=== PATIENT | female | born 1960 | race Caucasian/White ===

== ENCOUNTER → 2022-01-27 10:57 | Outpatient (BNVA) | payer MEDICARE, BC, SELFPAY | PROVIDERS: PCP Registered Nurse; Referring Provider Registered Nurse; Visit Provider Psychiatry & Neurology Neurology | DX: G35 Multiple sclerosis (principal); N31.9 Neuromuscular dysfunction of bladder, unspecified; G89.29 Other chronic pain; R25.2 Cramp and spasm; K59.00 Constipation, unspecified; R41.3 Other amnesia | CPT/HCPCS: 99215 ==

== ENCOUNTER 2022-02-17 02:59 | Outpatient (RCR) | payer MEDICARE, BC, SELFPAY ==
[2022-02-17] MEDS: methylPREDNISolone SUCC 125 MG VIAL 100 MG IVP (09:05)
[2022-02-17] MEDS: Acetaminophen 325 MG TAB 650 MG PO (09:05)
[2022-02-17] MEDS: diphenhydrAMINE 50 MG/ML VIAL IVP (09:06)
[2022-02-17 09:35] VITALS: BP 165/86; PULSE 83; RESP 16; TEMP 36.9; O2SAT 98
[2022-02-17 10:05] VITALS: BP 142/80; PULSE 77; RESP 16; TEMP 37.1; O2SAT 96
[2022-02-17 10:35] VITALS: BP 146/90; PULSE 73; RESP 16; TEMP 37.1; O2SAT 97
[2022-02-17 11:05] VITALS: BP 128/90; PULSE 76; RESP 16; TEMP 36; O2SAT 96
[2022-02-17 11:35] VITALS: BP 138/90; PULSE 75; RESP 16; TEMP 36.4; O2SAT 93
[2022-02-17 12:05] VITALS: BP 150/90; PULSE 74; RESP 16; TEMP 36.9; O2SAT 93
[2022-02-17] MEDS: Normal Saline Flush 10 ML SYR IVP (12:15)
== END 2022-03-04 23:59 | disposition home or self-care (01) ==
LOC: INF 02:59
PROVIDERS: PCP Registered Nurse; Visit Provider Psychiatry & Neurology Neurology
DX: G35 Multiple sclerosis (principal); E55.9 Vitamin D deficiency, unspecified
CPT/HCPCS: 96365; 96366; 96374; J1200; J2350; J2930

== ENCOUNTER 2022-03-06 01:59 | Outpatient (RCR) | payer MEDICARE, BC, SELFPAY ==
[2022-03-05 00:09] VITALS: BP 150/90; PULSE 74; RESP 16; TEMP 36.9
[2022-03-06] VITALS (7 sets, daily range): BP systolic 124–136; BP diastolic 68–86; PULSE 73–91; RESP 18; TEMP 34.9–36; O2SAT 96–99
[2022-03-06] MEDS: Dexamethasone 10 MG/ML VIAL IVP (09:02)
[2022-03-06] MEDS: Acetaminophen 325 MG TAB 650 MG PO (09:02)
[2022-03-06] MEDS: diphenhydrAMINE 50 MG/ML VIAL IVP (09:02)
[2022-03-06] MEDS: Normal Saline Flush 10 ML SYR IVP (09:17)
== END 2022-04-03 23:59 | disposition home or self-care (01) ==
LOC: INF 01:59
PROVIDERS: PCP Registered Nurse; Visit Provider Psychiatry & Neurology Neurology
DX: G35 Multiple sclerosis (principal)
CPT/HCPCS: 96375; 96365; 96366; 96374; J1100; J1200; J2350

== ENCOUNTER → 2022-03-20 12:42 | Outpatient (BNVA) | payer MEDICARE, BC, SELFPAY | PROVIDERS: PCP Registered Nurse; Referring Provider Registered Nurse; Visit Provider Nurse Practitioner Gerontology | DX: R33.8 Other retention of urine (principal); N31.9 Neuromuscular dysfunction of bladder, unspecified; G35 Multiple sclerosis; K59.00 Constipation, unspecified | CPT/HCPCS: 99215 ==

== ENCOUNTER → 2022-04-29 11:10 | Outpatient (BNVA) | payer MEDICARE, BC, SELFPAY | PROVIDERS: PCP Registered Nurse; Referring Provider Registered Nurse; Visit Provider Psychiatry & Neurology Neurology | DX: G35 Multiple sclerosis (principal); N31.9 Neuromuscular dysfunction of bladder, unspecified; K59.00 Constipation, unspecified; G89.29 Other chronic pain; R41.3 Other amnesia; R25.2 Cramp and spasm; F32.9 Major depressive disorder, single episode, unspecified | CPT/HCPCS: 99215 ==

== ENCOUNTER → 2022-07-29 11:07 | Outpatient (BNVA) | payer MEDICARE, BC, SELFPAY | PROVIDERS: PCP Registered Nurse; Referring Provider Registered Nurse; Visit Provider Psychiatry & Neurology Neurology | DX: G35 Multiple sclerosis (principal); N31.9 Neuromuscular dysfunction of bladder, unspecified; K59.00 Constipation, unspecified; G89.29 Other chronic pain; E55.9 Vitamin D deficiency, unspecified; R25.2 Cramp and spasm; R41.3 Other amnesia; F32.9 Major depressive disorder, single episode, unspecified; I10 Essential (primary) hypertension | CPT/HCPCS: 99215 ==

== ENCOUNTER 2022-08-25 02:27 | Outpatient (RCR) | payer MEDICARE, BC, SELFPAY ==
[2022-08-25] VITALS (8 sets, daily range): BP systolic 122–170; BP diastolic 67–87; PULSE 78–86; RESP 16–17; TEMP 35.8–37; O2SAT 94–98
[2022-08-25] MEDS: methylPREDNISolone SUCC 125 MG VIAL 100 MG IV (08:54)
[2022-08-25] MEDS: Acetaminophen 325 MG TAB 650 MG PO (08:55)
[2022-08-25] MEDS: diphenhydrAMINE 50 MG/ML VIAL IV (08:56)
[2022-08-25] MEDS: Normal Saline Flush 10 ML SYR IVP (09:11)
[2022-08-25] MEDS: OCRELIZUMAB 600 MG in Normal Saline 500 ML 40 MG IVPB (09:26)
== END 2022-09-03 23:59 | disposition home or self-care (01) ==
LOC: INF 02:27
PROVIDERS: PCP Registered Nurse; Visit Provider Psychiatry & Neurology Neurology
DX: G35 Multiple sclerosis (principal)
CPT/HCPCS: 96365; 96366; 96374; 96375; J1200; J2350; J2930

== ENCOUNTER → 2023-01-13 09:35 | Outpatient (BNVA) | payer MEDICARE, BC, SELFPAY | PROVIDERS: PCP Registered Nurse; Referring Provider Registered Nurse; Visit Provider Psychiatry & Neurology Neurology | DX: G35 Multiple sclerosis (principal); N31.9 Neuromuscular dysfunction of bladder, unspecified; R25.2 Cramp and spasm; K59.09 Other constipation; G89.29 Other chronic pain; R41.3 Other amnesia; F32.9 Major depressive disorder, single episode, unspecified | CPT/HCPCS: 99214 ==

== ENCOUNTER 2023-02-25 04:15 | Outpatient (RCR) | payer MEDICARE, BC, SELFPAY ==
[2023-02-25] MEDS: Acetaminophen 325 MG TAB 650 MG PO (10:18)
[2023-02-25] MEDS: diphenhydrAMINE 50 MG/ML VIAL 25 MG IVP (10:19)
[2023-02-25] MEDS: methylPREDNISolone SUCC 125 MG VIAL 100 MG IV (10:19)
[2023-02-25] MEDS: Normal Saline Flush 10 ML SYR IVP (10:20)
[2023-02-25] MEDS: OCRELIZUMAB 600 MG in Normal Saline 500 ML 260 MG IVPB (10:29)
[2023-02-25 10:35] VITALS: BP 153/97; PULSE 90; RESP 18; TEMP 35.5; O2SAT 98
[2023-02-25 10:45] LABS: Abs Immature Grans 0.01 10^3/uL (0.0-0.06); Absolute Basophil Count 0.04 10^3/uL (0.0-0.2); Absolute Eosinophil Count 0.12 10^3/uL (0.0-0.7); Absolute Lymphocyte Count 1.65 10^3/uL (1.2-3.4); Absolute Monocyte Count 0.49 10^3/uL (0.1-0.8); Absolute Neutrophil Count 3.51 10^3/uL (1.2-6.7); Basophils % 0.7; Eosinophils % 2.1; HCT 44.1 % (36.0-46.0); HGB 14.8 g/dL (11.2-15.7); Immature Grans % 0.2; Lymphocytes % 28.4; MCH 28.5 pg (27.0-33.0); MCHC 33.6 % (32.0-36.0); MCV 85 fL (80-95); MPV 11.7 fL (8.0-11.0); Monocytes % 8.4; Neutrophils % 60.2; Platelet Count 291 10^3/uL (130-400); RBC 5.19 10^6/uL (3.93-5.22); RDW 12.8 % (11.7-14.6); WBC 5.82 10^3/uL (4.4-10.8)
[2023-02-25 10:50] VITALS: BP 153/96; PULSE 73; RESP 18; TEMP 35.1; O2SAT 99
[2023-02-25 11:05] VITALS: BP 153/98; PULSE 78; RESP 18; TEMP 35.8; O2SAT 96
[2023-02-25 11:18] LABS: ALT 22 U/L (14-59); AST 19 U/L (15-37); Albumin 3.8 g/dL (3.4-5.0); Alkaline Phosphatase 91 U/L (46-116); Anion Gap 8.6 mmol/L (3-11); BUN 11 mg/dL (7-18); Bilirubin, Total 0.5 mg/dL (0.2-1.0); CO2 28.4 mmol/L (21.0-32.0); CREATININE 0.8 mg/dL (0.55-1.02); Calcium 9.3 mg/dL (8.5-10.1); Chloride 104 mmol/L (98-107); Estimated GFR 83.26 (mL/min/1.73m2); Glucose 95 mg/dL (74-106); Potassium 3.9 mmol/L (3.5-5.1); Sodium 141 mmol/L (136-145); Total Protein 7.6 g/dL (6.4-8.2)
[2023-02-25 11:35] VITALS: BP 146/87; PULSE 81; RESP 18; TEMP 36.1; O2SAT 97
[2023-02-25 12:05] VITALS: BP 143/78; PULSE 82; RESP 18; TEMP 35.8; O2SAT 96
[2023-02-25 12:35] VITALS: BP 137/87; PULSE 78; RESP 18; TEMP 35.8; O2SAT 95
[2023-02-26 10:12] LABS: HBs Antibody, Qual Negative (See Note); HBs Antibody, Quant 3.9 mIU/mL (See Note); Hepatitis B Core Antibody Negative (Negative); Hepatitis B surface Ag Negative (Negative); Hepatitis C Ab w Rflx HCV PCR Negative (Negative)
[2023-02-26 11:16] LABS: IgA 209 mg/dL (85-499); IgG 817 mg/dL (610-1616); IgM 109 mg/dL (35-242)
[2023-02-27 14:26] LABS: CD19 <1 % (6-24); CD20 <1 % (6-24)
[2023-02-28 11:19] LABS: TB Interpretation Positive (Negative); TB2 Ag minus Nil 9.86 IU/mL
== END 2023-03-04 23:59 | disposition home or self-care (01) ==
LOC: INF 04:15
PROVIDERS: PCP Registered Nurse; Visit Provider Psychiatry & Neurology Neurology
DX: G35 Multiple sclerosis (principal); E55.9 Vitamin D deficiency, unspecified
CPT/HCPCS: 80053; 82306; 82784; 86704; 86706; 86803; 87340; 88184; 88185; 96365; 96366; 85025; 86480; J1200; J2350; J2930

== ENCOUNTER → 2023-03-19 10:08 | Outpatient (BNVA) | payer MEDICARE, BC, SELFPAY | PROVIDERS: PCP Registered Nurse; Visit Provider Nurse Practitioner Gerontology | DX: N31.9 Neuromuscular dysfunction of bladder, unspecified (principal); G35 Multiple sclerosis; R33.9 Retention of urine, unspecified; Z87.440 Personal history of urinary (tract) infections; K59.00 Constipation, unspecified | CPT/HCPCS: 99214 ==

== ENCOUNTER → 2023-07-14 10:14 | Outpatient (BNVA) | payer MEDICARE, BC, SELFPAY | PROVIDERS: PCP Registered Nurse; Referring Provider Registered Nurse; Visit Provider Psychiatry & Neurology Neurology | DX: G35 Multiple sclerosis (principal); N31.9 Neuromuscular dysfunction of bladder, unspecified; G89.29 Other chronic pain; R25.2 Cramp and spasm; K59.00 Constipation, unspecified; R41.3 Other amnesia; F32.9 Major depressive disorder, single episode, unspecified; I10 Essential (primary) hypertension | CPT/HCPCS: 99214 ==

== ENCOUNTER 2023-08-31 02:30 | Outpatient (RCR) | payer MEDICARE, BC, SELFPAY ==
[2023-08-31] MEDS: methylPREDNISolone SUCC 125 MG VIAL IV (09:57)
[2023-08-31] MEDS: Acetaminophen 325 MG TAB 650 MG PO (09:57)
[2023-08-31] MEDS: diphenhydrAMINE 50 MG/ML VIAL IV (09:57)
[2023-08-31] MEDS: Normal Saline Flush 10 ML SYR IVP (09:57)
[2023-08-31] MEDS: OCRELIZUMAB 600 MG in Normal Saline 500 ML 100 MG IVPB (10:07)
[2023-08-31 10:15] VITALS: BP 140/82; PULSE 76; RESP 17; TEMP 35.8; O2SAT 100
[2023-08-31 10:16] LABS: Abs Immature Grans 0.01 10^3/uL (0.0-0.06); Absolute Basophil Count 0.04 10^3/uL (0.0-0.2); Absolute Eosinophil Count 0.08 10^3/uL (0.0-0.7); Absolute Lymphocyte Count 1.56 10^3/uL (1.2-3.4); Absolute Monocyte Count 0.44 10^3/uL (0.1-0.8); Absolute Neutrophil Count 2.96 10^3/uL (1.2-6.7); Basophils % 0.8; Eosinophils % 1.6; HCT 44.8 % (36.0-46.0); HGB 14.9 g/dL (11.2-15.7); Immature Grans % 0.2; Lymphocytes % 30.6; MCH 28.4 pg (27.0-33.0); MCHC 33.3 % (32.0-36.0); MCV 86 fL (80-95); MPV 11.6 fL (8.0-11.0); Monocytes % 8.6; Neutrophils % 58.2; Platelet Count 264 10^3/uL (130-400); RBC 5.24 10^6/uL (3.93-5.22); RDW 12.9 % (11.7-14.6); RDW-SD 39.9 fL; WBC 5.09 10^3/uL (4.4-10.8)
[2023-08-31 10:29] LABS: ALT 26 U/L (14-59); AST 17 U/L (15-37); Albumin 3.8 g/dL (3.4-5.0); Alkaline Phosphatase 92 U/L (46-116); Anion Gap 10.2 mmol/L (3-11); BUN 10 mg/dL (7-18); Bilirubin, Total 0.4 mg/dL (0.2-1.0); CO2 29.8 mmol/L (21.0-32.0); CREATININE 0.9 mg/dL (0.55-1.02); Calcium 9.3 mg/dL (8.5-10.1); Chloride 104 mmol/L (98-107); Estimated GFR 71.83 (mL/min/1.73m2); Glucose 81 mg/dL (74-106); Potassium 3.7 mmol/L (3.5-5.1); Sodium 144 mmol/L (136-145); Total Protein 7.6 g/dL (6.4-8.2)
[2023-08-31 10:30] VITALS: BP 143/87; PULSE 77; RESP 17; TEMP 35.7; O2SAT 98
[2023-08-31 10:45] VITALS: BP 154/66; PULSE 67; RESP 17; TEMP 35.2; O2SAT 99
[2023-08-31 11:15] VITALS: BP 151/65; PULSE 62; RESP 17; TEMP 35.5; O2SAT 97
[2023-08-31 11:45] VITALS: BP 141/81; PULSE 65; RESP 17; TEMP 35.4; O2SAT 97
[2023-08-31 12:15] VITALS: BP 142/83; PULSE 67; RESP 17; TEMP 35.1; O2SAT 97
[2023-09-01 09:29] LABS: IgA 188 mg/dL (85-499); IgG 855 mg/dL (610-1616); IgM 64 mg/dL (35-242)
[2023-09-01 17:00] LABS: CD19 <1 % (6-24); CD20 <1 % (6-24)
== END 2023-09-03 23:59 | disposition home or self-care (01) ==
LOC: INF 02:30
PROVIDERS: PCP Registered Nurse; Visit Provider Psychiatry & Neurology Neurology
DX: R43.1 Parosmia (principal); G35 Multiple sclerosis
CPT/HCPCS: 36415; 80053; 82784; 88184; 88185; 96365; 96366; 96374; 96375; 85025; J1200; J2350; J2930

== ENCOUNTER → 2023-09-14 06:52 | Outpatient (BNVA) | payer MEDICARE, BC, SELFPAY | PROVIDERS: PCP Registered Nurse; Referring Provider Registered Nurse; Visit Provider Psychiatry & Neurology Neurology | DX: G35 Multiple sclerosis (principal); N31.9 Neuromuscular dysfunction of bladder, unspecified; G89.29 Other chronic pain; R25.2 Cramp and spasm; K59.00 Constipation, unspecified; R41.3 Other amnesia; F32.9 Major depressive disorder, single episode, unspecified | CPT/HCPCS: 99214 ==

== ENCOUNTER → 2023-11-03 07:41 | Outpatient (BNVA) | payer MEDICARE, BC, SELFPAY | PROVIDERS: PCP Registered Nurse; Referring Provider Registered Nurse; Visit Provider Psychiatry & Neurology Neurology | DX: G35 Multiple sclerosis (principal); N31.9 Neuromuscular dysfunction of bladder, unspecified; G89.29 Other chronic pain; R25.2 Cramp and spasm; K59.00 Constipation, unspecified; R41.3 Other amnesia | CPT/HCPCS: 99213 ==

== ENCOUNTER 2024-03-04 00:40 | Outpatient (RCR) | payer MEDICARE, BC, SELFPAY ==
[2024-03-04] VITALS (7 sets, daily range): BP systolic 123–155; BP diastolic 68–92; PULSE 64–83; RESP 16–17; TEMP 35.9–36.1; O2SAT 96–99
[2024-03-04] MEDS: Acetaminophen 325 MG TAB 650 MG PO (08:46)
[2024-03-04] MEDS: diphenhydrAMINE 50 MG/ML VIAL IV (09:19)
[2024-03-04] MEDS: methylPREDNISolone SUCC 125 MG VIAL IV (09:22)
[2024-03-04] MEDS: Normal Saline Flush 10 ML SYR IVP (09:22)
[2024-03-04] MEDS: OCRELIZUMAB 600 MG in Normal Saline 500 ML 100 MG IVPB (09:27)
[2024-03-04 09:28] LABS: Abs Immature Grans 0.01 10^3/uL (0.0-0.06); Absolute Basophil Count 0.05 10^3/uL (0.0-0.2); Absolute Eosinophil Count 0.07 10^3/uL (0.0-0.7); Absolute Lymphocyte Count 1.16 10^3/uL (1.2-3.4); Absolute Neutrophil Count 2.98 10^3/uL (1.2-6.7); Basophils % 1.1 %; Eosinophils % 1.5 %; HCT 40.3 % (36.0-46.0); HGB 13.7 g/dL (11.2-15.7); Immature Grans % 0.2 %; Lymphocytes % 24.8 %; MCH 28.9 pg (27.0-33.0); MCV 85 fL (80-95); MPV 11.2 fL (8.0-11.0); Monocytes % 8.6 %; Neutrophils % 63.8 %; Platelet Count 238 10^3/uL (130-400); RBC 4.74 10^6/uL (3.93-5.22); RDW 13.2 % (11.7-14.6); RDW-SD 40.9 fL; WBC 4.67 10^3/uL (4.4-10.8)
[2024-03-04 09:47] LABS: ALT 25 U/L (14-59); AST 17 U/L (15-37); Albumin 3.7 g/dL (3.4-5.0); Alkaline Phosphatase 72 U/L (46-116); Anion Gap 8.5 mmol/L (3-11); BUN 10 mg/dL (7-18); Bilirubin, Total 0.5 mg/dL (0.2-1.0); CO2 28.5 mmol/L (21.0-32.0); CREATININE 0.8 mg/dL (0.55-1.02); Calcium 8.6 mg/dL (8.5-10.1); Chloride 105 mmol/L (98-107); Estimated GFR 82.74 (mL/min/1.73m2); Glucose 88 mg/dL (74-106); Potassium 3.6 mmol/L (3.5-5.1); Sodium 142 mmol/L (136-145); Total Protein 6.7 g/dL (6.4-8.2)
[2024-03-07 09:58] LABS: IgA 169 mg/dL (85-499); IgG 707 mg/dL (610-1616); IgM 50 mg/dL (35-242)
== END 2024-03-04 23:59 | disposition home or self-care (01) ==
LOC: INF 00:40
PROVIDERS: PCP Registered Nurse; Visit Provider Psychiatry & Neurology Neurology
DX: G35 Multiple sclerosis (principal)
CPT/HCPCS: 36415; 80053; 82784; 96365; 96366; 96374; 96375; 85025; J1200; J2350; J2919

== ENCOUNTER → 2024-03-16 10:11 | Outpatient (BNVA) | payer MEDICARE, BC, SELFPAY | PROVIDERS: PCP Registered Nurse; Referring Provider Registered Nurse; Visit Provider Nurse Practitioner Gerontology | DX: N31.9 Neuromuscular dysfunction of bladder, unspecified (principal); G35 Multiple sclerosis; R33.8 Other retention of urine; K59.00 Constipation, unspecified | CPT/HCPCS: 99214 ==

== ENCOUNTER → 2024-03-29 10:58 | Outpatient (BNVA) | payer MEDICARE, BC, SELFPAY | PROVIDERS: PCP Registered Nurse; Referring Provider Registered Nurse; Visit Provider Psychiatry & Neurology Neurology | DX: I87.2 Venous insufficiency (chronic) (peripheral) (principal); G35 Multiple sclerosis; N31.9 Neuromuscular dysfunction of bladder, unspecified; G89.29 Other chronic pain; R25.2 Cramp and spasm; K59.00 Constipation, unspecified; R41.3 Other amnesia; F32.9 Major depressive disorder, single episode, unspecified | CPT/HCPCS: 99214 ==

== ENCOUNTER 2024-09-16 01:07 | Outpatient (RCR) | payer MEDICARE, BC, SELFPAY ==
[2024-09-16 09:30] LABS: Abs Immature Grans 0.01 10^3/uL (0.0-0.06); Absolute Basophil Count 0.04 10^3/uL (0.0-0.2); Absolute Eosinophil Count 0.04 10^3/uL (0.0-0.7); Absolute Monocyte Count 0.41 10^3/uL (0.1-0.8); Absolute Neutrophil Count 2.87 10^3/uL (1.2-6.7); Basophils % 0.9 %; Eosinophils % 0.9 %; HCT 42.2 % (36.0-46.0); HGB 14.1 g/dL (11.2-15.7); Immature Grans % 0.2 %; Lymphocytes % 27.8 %; MCH 29.1 pg (27.0-33.0); MCHC 33.4 % (32.0-36.0); MCV 87 fL (80-95); MPV 11.7 fL (8.0-11.0); Monocytes % 8.8 %; Neutrophils % 61.4 %; Platelet Count 225 10^3/uL (130-400); RBC 4.84 10^6/uL (3.93-5.22); RDW 12.7 % (11.7-14.6); RDW-SD 40.3 fL; WBC 4.67 10^3/uL (4.4-10.8)
[2024-09-16] MEDS: Acetaminophen 325 MG TAB 650 MG PO (09:32)
[2024-09-16] MEDS: diphenhydrAMINE 50 MG/ML VIAL IVP (09:32)
[2024-09-16] MEDS: Normal Saline Flush 10 ML SYR IVP (09:33)
[2024-09-16] MEDS: methylPREDNISolone SUCC 125 MG VIAL IVP (09:40)
[2024-09-16] MEDS: OCRELIZUMAB 600 MG in Normal Saline 500 ML 100 MG IVPB (09:47)
[2024-09-16 10:47] VITALS: BP 149/94; PULSE 78; RESP 18; TEMP 36.1; O2SAT 100
[2024-09-16 11:20] VITALS: BP 128/83; PULSE 74; RESP 18; TEMP 36.8; O2SAT 98
[2024-09-19 11:41] LABS: IgA 147 mg/dL (85-499); IgG 746 mg/dL (610-1616); IgM 50 mg/dL (35-242)
== END 2024-10-04 23:59 | disposition home or self-care (01) ==
LOC: INF 01:07
PROVIDERS: PCP Registered Nurse; Visit Provider Psychiatry & Neurology Neurology
DX: G35 Multiple sclerosis (principal)
CPT/HCPCS: 36415; 80053; 82784; 85025; J1100; J1200; J2350; J2919

== ENCOUNTER → 2025-01-24 10:52 | Outpatient (BNVA) | payer MEDICARE, BC, SELFPAY | PROVIDERS: PCP Registered Nurse; Referring Provider Registered Nurse; Visit Provider Psychiatry & Neurology Neurology | DX: G35 Multiple sclerosis (principal); N31.9 Neuromuscular dysfunction of bladder, unspecified; G89.29 Other chronic pain; R25.2 Cramp and spasm; K59.00 Constipation, unspecified; R41.3 Other amnesia; F32.9 Major depressive disorder, single episode, unspecified; I87.2 Venous insufficiency (chronic) (peripheral); I10 Essential (primary) hypertension | CPT/HCPCS: 99214 ==

== ENCOUNTER → 2025-03-23 09:45 | Outpatient (BNVA) | payer MEDICARE, BC, SELFPAY | PROVIDERS: PCP Family Medicine; Referring Provider Family Medicine; Visit Provider Nurse Practitioner Gerontology | DX: N31.9 Neuromuscular dysfunction of bladder, unspecified (principal); G35 Multiple sclerosis; R33.9 Retention of urine, unspecified; K59.00 Constipation, unspecified | CPT/HCPCS: 99214 ==

== ENCOUNTER 2025-04-12 03:29 | Outpatient (RCR) | payer MEDICARE, BC, SELFPAY ==
[2025-04-12] MEDS: diphenhydrAMINE 50 MG/ML VIAL IVP (09:36)
[2025-04-12] MEDS: Acetaminophen 325 MG TAB 650 MG PO (09:36)
[2025-04-12] MEDS: methylPREDNISolone SUCC 125 MG VIAL IVP (09:36)
[2025-04-12] MEDS: Water,Injection,Bacteriostatic 30 ML VIAL (09:40)
[2025-04-12] MEDS: OCRELIZUMAB 600 MG in Normal Saline 500 ML 100 MG IVPB (09:43)
[2025-04-12 09:50] VITALS: BP 145/80; PULSE 64; RESP 18; TEMP 36.3; O2SAT 100
[2025-04-12 10:20] VITALS: BP 149/87; PULSE 58; RESP 17; TEMP 36.3; O2SAT 100
[2025-04-12 10:44] LABS: Abs Immature Grans 0.01 10^3/uL (0.0-0.06); HCT 40.9 % (36.0-46.0); HGB 13.5 g/dL (11.2-15.7); Immature Grans % 0.2 %; MCH 29.3 pg (27.0-33.0); MCHC 33.0 % (32.0-36.0); MCV 89 fL (80-95); MPV 12.2 fL (8.0-11.0); Platelet Count 186 10^3/uL (130-400); RBC 4.61 10^6/uL (3.93-5.22); RDW 13.6 % (11.7-14.6); RDW-SD 43.9 fL; WBC 5.00 10^3/uL (4.4-10.8)
[2025-04-12 10:50] VITALS: BP 135/72; PULSE 58; RESP 18; TEMP 36.3; O2SAT 97
[2025-04-12 11:20] VITALS: BP 133/74; PULSE 56; RESP 17; TEMP 36.1; O2SAT 98
[2025-04-12 11:23] LABS: ALT 25 U/L (14-59); AST 20 U/L (15-37); Albumin 3.6 g/dL (3.4-5.0); Alkaline Phosphatase 76 U/L (46-116); Anion Gap 10.1 mmol/L (3-11); BUN 12 mg/dL (7-18); Bilirubin, Total 0.4 mg/dL (0.2-1.0); CO2 27.9 mmol/L (21.0-32.0); Calcium 9.0 mg/dL (8.5-10.1); Chloride 107 mmol/L (98-107); Estimated GFR 96.52 (mL/min/1.73m2); Glucose 81 mg/dL (74-106); Potassium 3.8 mmol/L (3.5-5.1); Sodium 145 mmol/L (136-145); Total Protein 6.8 g/dL (6.4-8.2)
[2025-04-12 11:50] VITALS: BP 129/80; PULSE 58; RESP 17; TEMP 36.3; O2SAT 98
[2025-04-13 15:38] LABS: CD19 <1 % (6-24); CD20 <1 % (6-24)
== END 2025-05-04 23:59 | disposition home or self-care (01) ==
LOC: INF 03:29
PROVIDERS: PCP Family Medicine; Visit Provider Psychiatry & Neurology Neurology
DX: G35 Multiple sclerosis (principal)
CPT/HCPCS: 36415; 36591; 80053; 82784; 88184; 88185; 96365; 96366; 85025; J1200; J2350; J2919

== ENCOUNTER → 2025-07-25 11:01 | Outpatient (BNVA) | payer MEDICARE, BC, SELFPAY | PROVIDERS: PCP Family Medicine; Visit Provider Psychiatry & Neurology Neurology | DX: G35.D Multiple sclerosis, unspecified (principal); N31.9 Neuromuscular dysfunction of bladder, unspecified; G89.29 Other chronic pain; R25.2 Cramp and spasm; K59.00 Constipation, unspecified; R41.3 Other amnesia; F32.9 Major depressive disorder, single episode, unspecified; I87.2 Venous insufficiency (chronic) (peripheral); I10 Essential (primary) hypertension | CPT/HCPCS: 99214 ==